=== PATIENT | male | born 1955 | race Caucasian/White ===

== ENCOUNTER → 2021-06-02 | Outpatient (CLI) | payer MEDICARE, OTHER ==
--- NOTE | 2021-06-02 12:49 | CTL ---
EXAMINATION TYPE: CT Low Dose Lung DATE OF EXAM ORDERED: 06/02/2021 HISTORY: 66-year-old male Z87.891 personal hx tobacco use. Lung cancer screening CT DLP: 2.[address] CTDI: 67.90 mGy Automated exposure control for dose reduction was used. SCREENING VISIT: Baseline COMPARISON: None TECHNIQUE: Low dose computed tomography scan was performed through the chest with coronal and sagitta l reconstructions. CT DIAGNOSTIC QUALITY: Satisfactory FINDINGS: Heart normal size without pericardial effusion. Mild LCA and proximal LAD coronary artery calcificati ons are present. Ectatic aortic root at 3.6 cm. Mild aneurysm ascending aorta at 4.0 cm. Mild atherosclerotic arch daquan cifications with bovine configuration to the aortic arch. Mild to moderate atherosclerotic calcificat ions and the remainder of the descending thoracic aorta. No thoracic lymphadenopathy by size criteria. Moderate diffuse bronchial wall thickening. Mild to moderate centrilobular emphysema. Scattered pleur al parenchymal scarring in the apices and upper lungs. Focal subsegmental volume loss medially along the minor fissure at the mid lung level. 4 mm left upper lobe pulmonary nodule, axial 54 and coronal MIP series 10 image 35. No consolidating pleural effusion otherwise seen. Liver shows relative hypodensity suggesting fatty infiltration. Prominent 2.0 cm cystic lesion just deep to the skin surface right posterolateral mid back, axial hung ge 33 and sagittal image 49. BONES: Old healed right greater than left rib fracture deformities. Mild to moderate degenerative dis c disease mid thoracic spine. IMPRESSION: 1. LungRADS 2, benign. Solitary 4 mm left upper lobe pulmonary nodule at baseline. 2. COPD with [id number] emphysema. Scattered pleural parenchymal scarring. Some chronic appeari ng volume loss and subsegmental atelectasis anteromedial right midlung. 3. Mild aneurysm ascending aorta at 4.[address] LUNG RAD AND CT CHEST RECOMMENDATION: Lung-Rad 2 Benign Appearance or Behavior: Continue annual sc reening with LDCT in 12 months.
== END | disposition home or self-care (01) ==
LOC: RADCTMAIN 07:50
PROVIDERS: ATTEND Family Medicine
DX: Z12.2 Encounter for screening for malignant neoplasm of respiratory organs (principal); R91.1 Solitary pulmonary nodule; J43.9 Emphysema, unspecified; J98.11 Atelectasis; I71.2 Thoracic aortic aneurysm, without rupture; Z87.891 Personal history of nicotine dependence
CPT/HCPCS: 71271

== ENCOUNTER 2022-03-19 18:51 | Inpatient (IN) | payer MEDICARE, OTHER ==
--- NOTE | 2022-03-19 21:43 | XR ---
EXAMINATION TYPE: XR ribs LT w pa chest xray DATE OF EXAM: 03/19/2022 8:21 PM INDICATION: Patient age:Male; 66 years old; Reason for study: LEFT RIB PAIN; PHH. COMPARISON: Low-dose CT chest 06/02/2021 TECHNIQUE: Frontal lateral and oblique views of the left ribs. FINDINGS: The ribs have a normal appearance. No evidence of fracture. Overall, the lungs are clear. The cardiac silhouette is normal in size. The remaining osseous structures are intact. There is inc reased lucency of the lung apices and flattening of the diaphragms. IMPRESSION RIBS: 1. No acute osseous pathology. 2. COPD changes.
--- NOTE | 2022-03-19 21:47 | XR ---
EXAMINATION TYPE: XR Hip Complete LT DATE OF EXAM: 03/19/2022 8:21 PM INDICATION: Patient age:Male; 66 years old; Reason for study: LEFT HIP PAIN; . COMPARISON: None. TECHNIQUE: The left hip was examined in the frontal and lateral projections and a AP pelvis. FINDINGS: Total left hip arthroplasty. Arthroplasty is intact. No evidence of acute fracture. IMPRESSION: 1. No acute osseous pathology. 2. Left hip arthroplasty intact.
[2022-03-19] MEDS ORDERED: HYDROmorphone 1 MG/ML 1 ML SYRINGE IM STA (23:45)
[2022-03-19] MEDS ORDERED: ONDANSETRON ODT 4 MG TAB PO STA (23:45)
[2022-03-19] MEDS ORDERED: ORPHENADRINE 30 MG/ML 2 ML VIAL IM STA (23:45)
--- NOTE | 2022-03-20 01:50 | ED ---
General Adult HPI - General Chief complaint: Fall Stated complaint: Fall/hip pain Time Seen by Provider: 03/19/22 23:00 Source: patient, EMS, RN notes reviewed Mode of arrival: EMS Limitations: no limitations - History of Present Illness Initial comments: 66-year-old male presents to the emergency department via EMS for evaluation of left hip and left chest wall pain status post fall on Wednesday. Patient states he has had difficulty getting around the past 2 days and has been unable to bear weight today. Patient states his significant other had to call EMS today because he was unable to ambulate. Patient describes his fall on Wednesday as a trip on an uneven section of the sidewalk. States he landed on his left hip on cement, but his torso landed in the grass. Reports a history of bilateral hip replacement. States he ambulates without any assistive devices. Denies any injury to his head, neck, or back. No abrasions, deformities, or further injuries reported. - Related Data Home Medications Medication Instructions Recorded Confirmed Budesonide 1 mg INHALATION RT-BID 03/20/22 03/20/22 Glycopyrrolate/Formoterol Fum 2 puff INHALATION RT-BID 03/20/22 03/20/22 [Bevespi Aerosphere Inhaler] Metoprolol Succinate [Toprol XL] 50 mg PO HS 03/20/22 03/20/22 amLODIPine BESYLATE/BENAZEPRIL 1 cap PO HS 03/20/22 03/20/22 [amLODIPine BESYLATE/BENAZEPRIL 5-40 mg] Allergies Allergy/AdvReac Type Severity Reaction Status Date / Time No Known Allergies Allergy Verified 03/20/22 08:17 Review of Systems ROS Statement: Those systems with pertinent positive or pertinent negative responses have been documented in the HPI. ROS Other: All systems not noted in ROS Statement are negative. Past Medical History Past Medical History: Hypertension History of Any Multi-Drug Resistant Organisms: None Reported Past Surgical History: Orthopedic Surgery Additional Past Surgical History / Comment(s): BILATERAL HIP REPLACEMENTS Past Psychological History: No Psychological Hx Reported Smoking Status: Current every day smoker Past Alcohol Use History: None Reported Past Drug Use History: None Reported - Past Family History Father Family Medical History: Myocardial Infarction ([place]) General Exam Limitations: physical limitation (unable to bear weight) General appearance: alert, in distress (Well-developed, well-nourished male complains of moderate distress related to pain of the left hip. Initial temperature 98.4, pulse 100, respirations 18, blood pressure 139/81, pulse ox 98% on room air.) Head exam: Present: atraumatic, normocephalic, normal inspection Eye exam: Present: normal appearance, PERRL, EOMI. Absent: scleral icterus, conjunctival injection, periorbital swelling Neck exam: Present: normal inspection, full ROM. Absent: tenderness Respiratory exam: Present: normal lung sounds bilaterally, chest wall tenderness (Chest wall tenderness along anterior left ribs #4-6 extending to the lateral chest), other (Nonproductive cough). Absent: respiratory distress, wheezes, rales, rhonchi, stridor Cardiovascular Exam: Present: regular rate, normal rhythm, normal heart sounds. Absent: systolic murmur, diastolic murmur, rubs, gallop, clicks GI/Abdominal exam: Present: soft, normal bowel sounds. Absent: distended, tenderness, guarding, rebound, rigid Left Hip exam: Present: normal inspection, tenderness (Mild tenderness upon palpation of the left aspect of the hip extending along the quad), pelvic stability. Absent: full ROM (able to raise extended affected extremity approximately 3 inches from resting position before it is limited by pain. Also complains of worsening pain in the left hip with right sided straight leg raise ), swelling, laceration, ecchymosis, deformity, external rotation, internal rotation, shortening Upper Leg exam: Present: normal inspection Knee exam: Present: normal inspection, full knee extension. Absent: tenderness, swelling Lower Leg exam: Present: normal inspection, full ROM Ankle exam: Present: normal inspection, full ROM Foot/Toe exam: Present: normal inspection, full ROM Neurovascular tendon exam: Present: no vascular compromise, motor deficit. Absent: pulse deficit, abnormal cap refill Gait: unable to bear weight Back exam: Present: normal inspection. Absent: paraspinal tenderness, vertebral tenderness Neurological exam: Present: alert, oriented X3 Psychiatric exam: Present: anxious Skin exam: Present: warm, dry, intact, normal color. Absent: rash Course Vital Signs 03/19/22 03/19/22 03/20/22 18:55 23:57 01:00 Temperature 98.4 F 98.0 F Pulse Rate 100 83 71 Respiratory 18 18 18 Rate Blood Pressure 139/81 108/68 107/65 O2 Sat by Pulse 98 93 L 99 Oximetry 03/20/22 03/20/22 03/20/22 03:00 07:53 11:07 Temperature 98 F Pulse Rate 81 90 87 Respiratory 18 18 16 Rate Blood Pressure 104/61 116/68 134/75 O2 Sat by Pulse 95 94 L 89 L Oximetry 03/20/22 03/20/22 12:54 14:00 Temperature Pulse Rate 65 83 Respiratory 16 20 Rate Blood Pressure 141/68 148/71 O2 Sat by Pulse 97 98 Oximetry - Reevaluation(s) Reevaluation #1: 03/20/22 01:02 Pain improved with medication administration. Appears more comfortable at rest. Able to reposition upright to urinate. He feels unable to bear weight at this time. Will reassess. 03/20/22 02:25 Multiple attempts to ambulate patient were unsuccessful. Given his recent fall and as patient lives alone in a home with several steps, he will be admitted to the hospital for intractable pain and safety concerns. Medical Decision Making - Medical Decision Making 66-year-old male with a past medical history of bilateral hip replacement presents to the emergency department for evaluation of left hip and left chest wall pain status post fall stay. Upon exam, patient is initially very uncomfortable and endorses inability to bear weight. Physical exam findings are unremarkable. There is no obvious deformity or pelvic instability. Patient was given pain medication and multiple attempts were made to ambulate patient unsuccessfully. X-rays negative. Given patient's independent living situation with no assistance at home and steps required to enter his house, he will be admitted for intractable left hip pain. This patient's care was discussed with my attending, Dr. Feng. I did speak with Dr. Jackson who agrees to accept this admission. - Lab Data Result diagrams: 03/20/22 05:10 03/20/22 05:10 Lab Results 03/20/22 03/20/22 Range/Units 05:10 05:10 WBC 8.1 (3.8-10.6) k/uL RBC 4.07 L (4.30-5.90) m/uL Hgb 13.0 (13.0-17.5) gm/dL Hct 39.2 (39.0-53.0) % MCV 96.4 (80.0-100.0) fL MCH 31.8 (25.0-35.0) pg MCHC 33.0 (31.0-37.0) g/dL RDW 13.5 (11.5-15.5) % Plt Count 236 (150-450) k/uL MPV 8.1 Sodium 128 L (137-145) mmol/L Potassium 4.5 (3.5-5.1) mmol/L Chloride 95 L (98-107) mmol/L Carbon Dioxide 27 (22-30) mmol/L Anion Gap 6 mmol/L BUN 7 L (9-20) mg/dL Creatinine 0.61 L (0.66-1.25) mg/dL Est GFR (CKD-EPI)AfAm >90 (>60 ml/min/1.73 sqM) Est GFR (CKD-EPI)NonAf >90 (>60 ml/min/1.73 sqM) Glucose 91 (74-99) mg/dL Calcium 8.7 (8.4-10.2) mg/dL - Radiology Data Radiology results: report reviewed, image reviewed X-ray of the left hip was obtained. Report was reviewed in its entirety. Impression per Dr. aRder's #1. No acute osseous pathology. #2 left hip arthroplasty intact. X-ray of the left ribs with PA chest was obtained. Report was reviewed in its entirety. Impression per Dr. Rader as #1. No acute osseous pathology. #2 COPD changes. Disposition Clinical Impression: Hip pain, left Disposition: ADMITTED IP TO THIS [facility] Condition: Serious Decision Date: 03/20/22 Decision Time: 02:26
[2022-03-20] MEDS ORDERED: ONDANSETRON 4 MG/2 ML VIAL IVP PRN (03:25)
[2022-03-20] MEDS ORDERED: IBUPROFEN 400 MG TAB PO PRN (03:25)
[2022-03-20] MEDS ORDERED: NALOXONE 0.4 MG/ML 1 ML VIAL IV PRN (03:25)
[2022-03-20] MEDS ORDERED: ACETAMINOPHEN TAB 325 MG TAB PO PRN (03:25)
--- NOTE | 2022-03-20 04:14 | P.HPIM ---
History of Present Illness H&P Date: 03/20/22 Patient is a 66-year-old male with a PMH of COPD, hypertension, thoracic aortic aneurysm, tobacco abuse, bilateral hip replacements who presented to the emergency room after fall. The patient reports that he had a mechanical fall this past Wednesday after he was done mowing his lawn, where he fell onto concrete, hitting his left hip as well as his left chest wall. Reports gradually worsening pain of the left hip since the fall. Reports that he is no longer able to bear weight or walk even with a walker. Reports no pain at rest. The patient is normally able to ambulate without any assistance. He denied any numbness or tingling of the legs. Also denied substernal chest discomfort, shortness of breath, nausea, vomiting, abdominal pain, fever, chills, cough. Review of systems: Pertinent positives and negatives as discussed in HPI, a complete review of systems was performed and all other systems are negative. Physical examination: General: non toxic, no distress, appears at stated age, normal weight Derm: no unusual rashes/lesions no unusual ecchymoses, warm, dry Head: atraumatic, normocephalic, symmetric Eyes: EOMI, no lid lag, anicteric sclera, pupils equal round reactive to light ENT: Nose and ears atraumatic, no thrush, no pharyngeal erythema Neck: No thyromegaly, no cervical lymphadenopathy, trachea midline, supple Mouth: no lip lesion, mucus membranes moist Cardiovascular: S1S2 reg, no murmur, positive posterior tibial pulse bilateral, no edema, capillary refill less than 2 seconds Lungs: CTA bilateral, no rhonchi, no rales , no accessory muscle use Abdominal: soft, nontender to palpation, no guarding, no appreciable organomegaly, normal bowel sounds Ext: no gross muscle atrophy, muscle strength 5 out of 5 in all extremities grossly except left lower extremity due to pain, left hip pain elicited with passive range of motion no contractures, Neuro: CN II-XI grossly intact, light touch intact all 4 extremities, finger to nose within normal limits, Psych: Alert, oriented, appropriate affect Assessment/plan Intractable left hip pain after fall -PT consult -No fractures noted on x-ray Chronic conditions: COPD, hypertension -Continue with home meds DVT prophylaxis -Heparin subq The patient is admitted with an anticipated less than 2 midnight stay for evaluation of intractable pain CODE STATUS: Full Code Discussed with: Patient Anticipated discharge date: in am Anticipated discharge place: Home Past Medical History Past Medical History: Hypertension History of Any Multi-Drug Resistant Organisms: None Reported Past Surgical History: Orthopedic Surgery Additional Past Surgical History / Comment(s): BILATERAL HIP REPLACEMENTS Past Psychological History: No Psychological Hx Reported Smoking Status: Current every day smoker Past Alcohol Use History: None Reported Past Drug Use History: None Reported - Past Family History Father Family Medical History: Myocardial Infarction ([place]) Medications and Allergies Allergies Allergy/AdvReac Type Severity Reaction Status Date / Time No Known Allergies Allergy Verified 03/19/22 18:55 Physical Exam Vitals: Vital Signs Temp Pulse Resp BP Pulse Ox 03/20/22 03:00 81 18 104/61 95 03/20/22 01:00 71 18 107/65 99 03/19/22 23:57 98.0 F 83 18 108/68 93 L 03/19/22 18:55 98.4 F 100 18 139/81 98 Intake and Output 03/19/22 03/19/22 03/20/22 14:59 22:59 06:59 Other: Weight 74.843 kg
[2022-03-20 05:32] LABS: HCT 39.2 % (39.0-53.0); MCH 31.8 pg (25.0-35.0); MCV 96.4 fL (80.0-100.0); Mean Platelet Volume 8.1; Platelet Count 236 k/uL (150-450); RBC 4.07 m/uL (4.30-5.90); RDW 13.5 % (11.5-15.5); WBC 8.1 k/uL (3.8-10.6)
[2022-03-20 05:41] LABS: African American GFR (CKD) >90 (>60 ml/min/1.73 sqM); Anion Gap 6 mmol/L; Blood Urea Nitrogen 7 mg/dL (9-20); Calcium 8.7 mg/dL (8.4-10.2); Carbon Dioxide 27 mmol/L (22-30); Chloride 95 mmol/L (98-107); Glucose 91 mg/dL (74-99); Non-African American GFR(CKD) >90 (>60 ml/min/1.73 sqM); Potassium 4.5 mmol/L (3.5-5.1); Sodium 128 mmol/L (137-145)
[2022-03-20] MEDS: HYDROmorphone 1 MG/ML 1 ML SYRINGE IVP PRN ×4 (07:30→20:10)
[2022-03-20] MEDS: FAMOTIDINE 20 MG TAB PO SCH ×2 (07:30→20:10)
[2022-03-20] MEDS ORDERED: NON FORMULARY DRUG (Glycopyrrolate/Formoterol Fum [Bevespi Aerosphere Inhaler] 10.7 GM Gm) INHALATION SCH (20:00)
[2022-03-20] MEDS: IPRATROPIUM-ALBUTEROL 3 ML NEB INHALATION SCH ×3 (20:31→23:33)
[2022-03-20] MEDS: BUDESONIDE 1 MG/2 ML NEBU INHALATION SCH (20:32)
[2022-03-20] MEDS ORDERED: METOPROLOL SUCCINATE (ER) 50 MG TAB.ER.24H PO SCH (21:00)
[2022-03-20] MEDS ORDERED: lisinopriL 20 MG TAB PO SCH (21:00)
[2022-03-20] MEDS ORDERED: amLODIPine 5 MG TAB PO SCH (21:00)
[2022-03-20] MEDS: HYDROcodone/APAP 5-325MG 1 EACH TAB PO PRN (23:26)
[2022-03-21 03:16] VITALS: RESP 18
[2022-03-21] MEDS: IPRATROPIUM-ALBUTEROL 3 ML NEB INHALATION SCH ×3 (03:42→12:06)
[2022-03-21] MEDS: HYDROmorphone 1 MG/ML 1 ML SYRINGE IVP PRN ×3 (05:44→13:51)
[2022-03-21] MEDS: FAMOTIDINE 20 MG TAB PO SCH (08:03)
[2022-03-21] MEDS: predniSONE 20 MG TAB PO SCH ×3 (08:03→09:07)
[2022-03-21] MEDS: BUDESONIDE 1 MG/2 ML NEBU INHALATION SCH (08:47)
[2022-03-21 09:07] LABS: HCT 37.7 % (39.6-50.0); HGB 13.1 g/dL (13.0-17.0); MCHC 34.7 g/dL (32.0-37.0); MCV 92.2 fL (80.0-97.0); NRBC Per 100 WBC 0 /100 WBCS (0.0-0.0); Platelet Count 253 X 10*3/uL (140-440); RBC 4.09 X 10*6/uL (4.40-5.60); RDW 14.5 % (11.5-14.5); WBC 8.44 X 10*3/uL (4.50-10.00)
[2022-03-21 09:09] LABS: African American GFR (CKD) 115.6 (60.0-200.0); Anion Gap 8.8 mmol/L (10.00-18.00); BUN/Creat Ratio 13.57 Ratio (12.00-20.00); Blood Urea Nitrogen 9.5 mg/dL (9.0-27.0); Calcium 9.1 mg/dL (8.7-10.3); Carbon Dioxide 25.2 mmol/L (20.0-27.5); Non-African American GFR(CKD) 99.7 (60.0-200.0); Potassium 4.8 mmol/L (3.5-5.5)
[2022-03-21 10:28] LABS: Basophils # (M) 0.17 X 10*3/uL (0.00-0.10); Eosinophils # (M) 1.01 X 10*3/uL (0.04-0.35); Lymphocytes # (M) 1.18 X 10*3/uL (0.90-5.00); Monocytes # (M) 0.68 X 10*3/uL (0.20-1.00); Neutrophils % (M) 64 %
[2022-03-21] MEDS ORDERED: NICOTINE 14MG/24HR PATCH TRANSDERM SCH (10:45)
[2022-03-21] MEDS: HYDROcodone/APAP 5-325MG 1 EACH TAB PO PRN (11:34)
[2022-03-21 15:30] VITALS: BP 135/76; PULSE 69; TEMP 97.8
--- NOTE | 2022-03-21 16:10 | P.DS ---
Providers Date of admission: 03/20/22 12:30 Expected date of discharge: 03/21/22 Attending physician: Columba Jackson MD Primary care physician: Jorge Quintero MD Hospital Course: Intractable left hip pain after fall COPD exacerbation hypertension Patient is a 66-year-old male with a PMH of COPD, hypertension, thoracic aortic aneurysm, tobacco abuse, bilateral hip replacements who presented to the emergency room after fall. Hip XR did not show fracture. Ribs with CXR also showed no fractures, but did show COPD changes. Pt was noted to be wheezing on exam, and improved quickly for COPD exacerbation with 24 hours of nebulizers. Pt was able to ambulate with pain control and front wheeled walker. He was discharged home and asked to f/u with ortho outpatient. He is agreeable to this plan. Gen: awake, alert HEENT: normocephalic, atraumatic, good hearing acuity, moist mucous membranes Resp: good air exchange, breathing comfortably with no accessory muscle use CVS: good distal perfusion x 4, GI: soft, NTTP, ND : no SPT, no CVAT, weldon catheter not present MSK: no pitting edema, no clubbing Neuro: non-focal, moving all extremities Psych: cooperative, euthymic mood Patient Condition at Discharge: Good Plan - Discharge Summary Discharge Rx Participant: Yes New Discharge Prescriptions: New Ibuprofen [Motrin] 400 mg PO Q6HR PRN #30 tab PRN Reason: Mild Pain Or Fever > 100.5 HYDROcodone/APAP 5-325MG [[place] 5-325] 1 each PO Q3H PRN #24 tab PRN Reason: Moderate Pain Acetaminophen Tab [Tylenol] 650 mg PO Q6HR PRN tab PRN Reason: Mild Pain Or Fever > 100.5 Continue Metoprolol Succinate [Toprol XL] 50 mg PO HS amLODIPine BESYLATE/BENAZEPRIL [amLODIPine BESYLATE/BENAZEPRIL 5-40 mg] 1 cap PO HS Glycopyrrolate/Formoterol Fum [Bevespi Aerosphere Inhaler] 2 puff INHALATION RT-BID Budesonide 1 mg INHALATION RT-BID Discharge Medication List Budesonide 1 mg INHALATION RT-BID 03/20/22 [History] Glycopyrrolate/Formoterol Fum [Bevespi Aerosphere Inhaler] 2 puff INHALATION RT- BID 03/20/22 [History] Metoprolol Succinate [Toprol XL] 50 mg PO HS 03/20/22 [History] amLODIPine BESYLATE/BENAZEPRIL [amLODIPine BESYLATE/BENAZEPRIL 5-40 mg] 1 cap PO HS 03/20/22 [History] Acetaminophen Tab [Tylenol] 650 mg PO Q6HR PRN tab 03/21/22 [Rx] HYDROcodone/APAP 5-325MG [[place] 5-325] 1 each PO Q3H PRN #24 tab 03/21/22 [Rx] Ibuprofen [Motrin] 400 mg PO Q6HR PRN #30 tab 03/21/22 [Rx] Follow up Appointment(s)/Referral(s): Jorge Quintero MD [Primary Care Provider] - 1-2 days Patient Instructions/Handouts: Hip Pain (GEN) Discharge Disposition: HOME SELF-CARE
== END 2022-03-21 16:08 | disposition home or self-care (01) | DRG 556 ==
LOC: EC 18:51 → 6NMEDSUR 03-20 03:59 → OBSVTOIN 03-20 12:30 → 4SSUR 03-20 14:19
PROVIDERS: ADMIT Internal Medicine; ATTEND Internal Medicine
DX: M25.552 Pain in left hip (principal); J44.1 Chronic obstructive pulmonary disease with (acute) exacerbation; W18.30XA Fall on same level, unspecified, initial encounter; I71.2 Thoracic aortic aneurysm, without rupture; I10 Essential (primary) hypertension; F17.210 Nicotine dependence, cigarettes, uncomplicated; Z82.49 Family history of ischemic heart disease and other diseases of the circulatory system; Z96.643 Presence of artificial hip joint, bilateral; Z79.899 Other long term (current) drug therapy
CPT/HCPCS: 73502; 80048; 85025; 85027; 94640; 96372; 96374; 96376; 99285

== ENCOUNTER → 2022-06-03 | Outpatient (CLI) | payer MEDICARE, OTHER ==
[2022-06-03 08:46] LABS: African American GFR (CKD) >90 (>60 ml/min/1.73 sqM); Blood Urea Nitrogen 5 mg/dL (9-20); Non-African American GFR(CKD) >90 (>60 ml/min/1.73 sqM)
--- NOTE | 2022-06-03 10:30 | CT ---
EXAMINATION TYPE: CT angio chest CT DLP: 407.6 mGycm, Automated exposure control for dose reduction was used. DATE OF EXAM: 06/03/2022 9:39 AM COMPARISON: CT low dose lung 06/02/2021. CLINICAL INDICATION:Male, 67 years old with history of I71.2 thoracic aortic aneurysm; Ascending Thor acic Aortic Aneurysm TECHNIQUE/CONTRAST: CTA scan of the thorax is performed without and with IV Contrast, patient injected with 100 mL of Iso harriet 370, MIP and 3-D images are created and reviewed. Coronal and sagittal reformats reviewed. FINDINGS: ARTERIAL VASCULATURE: The thoracic aorta is normal in course. The aortic root measures up to 3.6 cm. The descending thoracic aorta measures up to 3.5 cm, previously 3.9 cm. The descending thoracic aorta measures up to 2.4 cm. No evidence of intramural hematoma or aortic dissection. Great arch vessels p atent and normal in course. Mild stenosis of the origin of the left common carotid artery secondary t o mixed calcified and noncalcified plaque. Minimal stenosis origin of the left subclavian artery seco ndary to calcified plaque. Moderate atherosclerotic changes of the thoracic aorta. Coronary artery ca lcifications noted. The moderate stenosis of the origin of the stent SMA. The celiac axis is patent. Moderate stenosis of the origin of the right renal artery which is patent. The left renal areas pain. PULMONARY ARTERIAL VASCULATURE: Normal caliber. No evidence of filling defect to suggest pulmonary em bolus. VENOUS SYSTEM: Unremarkable. Lungs/Pleura: No pneumothorax, pleural effusion, focal consolidation. Mild centrilobular emphysematou s changes with upper lobe predominance. Increased right upper lobe scarring near the fissures. Stable left upper lobe or millimeter pulmonary nodule (series 9, image 57). No new or enlarging pulmonary n odules. Airway: Large airways are patent. Heart: Heart is within normal limits for size. No pericardial effusion. Mediastinum: No gross evidence of adenopathy. Musculoskeletal: No acute osseous abnormalities. Remote bilateral rib fractures. Soft Tissues: Redemonstration of 3.0 cm cystic lesion just deep to the skin surface of the right post erolateral mid back likely representing a benign process such as a sebaceous cyst. Lower neck: No significant findings. Upper Abdomen: Calcified gallstones identified. IMPRESSION: 1. Mild ectasia of the ascending thoracic aorta measuring up to 3.6 cm. 2. Mild centrilobular emphysematous changes with stable left upper lobe 4 mm pulmonary nodule. No new or enlarging pulmonary nodules. 3. Cholelithiasis.
== END | disposition home or self-care (01) ==
LOC: RADCTMAIN 07:57
PROVIDERS: ATTEND Family Medicine
DX: I71.2 Thoracic aortic aneurysm, without rupture (principal); K80.20 Calculus of gallbladder without cholecystitis without obstruction; J43.9 Emphysema, unspecified
CPT/HCPCS: 82565; 84520; 71275; 36415; Q9967

== ENCOUNTER → 2024-03-09 | Outpatient (CLI) | payer MEDICARE, OTHER ==
[2024-03-09] MEDS: DENOSUMAB 60 MG/ML 1 ML SYRINGE SQ NR (09:25)
[2024-03-09 10:13] VITALS: BP 145/87; PULSE 84; RESP 16; TEMP 98.2
== END ==
LOC: PROCWHC3 09:14
PROVIDERS: ATTEND Family Medicine
DX: M81.0 Age-related osteoporosis without current pathological fracture (principal)
CPT/HCPCS: 96372; J0897